=== PATIENT | male | born 1990 | race Caucasian/White ===

== ENCOUNTER 2018-11-02 14:57 | Emergency (ER) | payer OTHER ==
[2018-11-02 15:31] VITALS: BP 169/112; PULSE 98; RESP 18; TEMP 97.8
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
== END 2018-11-02 17:58 | disposition home or self-care (01) ==
LOC: EC 14:57
DX: S16.1XXA Strain of muscle, fascia and tendon at neck level, initial encounter (principal); R03.0 Elevated blood-pressure reading, without diagnosis of hypertension; V53.5XXA Driver of pick-up truck or van injured in collision with car, pick-up truck or van in traffic accident, initial encounter; Y92.69 Other specified industrial and construction area as the place of occurrence of the external cause; Y99.0 Civilian activity done for income or pay
CPT/HCPCS: 70450; 72125; 99284

== ENCOUNTER → 2018-11-10 | Outpatient (CLI) | payer OTHER ==
--- NOTE | 2018-11-10 10:44 | XR ---
EXAMINATION TYPE: XR lumbar spine 2 or 3V DATE OF EXAM: 11/10/2018 CLINICAL HISTORY: pain TECHNIQUE: Three views of the lumbar spine are submitted. COMPARISON: None. FINDINGS: There are 5 lumbar type vertebral bodies identified. The lumbar spine shows satisfactory alignment w ithout evidence of acute fracture or dislocation. Vertebral body heights are within normal limits. Disc spaces are within normal limits. The overlying soft tissue appears unremarkable. IMPRESSION: No acute fracture or dislocation is seen in the lumbar spine. ICD 10 NO FRACTURE, INITIAL EVALUATION
== END | disposition home or self-care (01) ==
LOC: RADXRMAIN 10:14
PROVIDERS: ATTEND Emergency Medicine
DX: S33.5XXA Sprain of ligaments of lumbar spine, initial encounter (principal)
CPT/HCPCS: 72100

== ENCOUNTER 2023-05-11 15:41 | Emergency (ER) | payer OTHER ==
--- NOTE | 2023-05-11 16:08 | ED ---
General Adult HPI - General Source: patient, RN notes reviewed Mode of arrival: ambulatory Limitations: no limitations <Meghan Mendes - Last Filed: 05/11/23 16:05> - General Source: patient, RN notes reviewed, old records reviewed <Arsen Castro - Last Filed: 05/11/23 21:16> - General Chief complaint: Back Pain/Injury Stated complaint: Back pain Time Seen by Provider: 05/11/23 16:05 - History of Present Illness Initial comments: 33 year old male presents to the emergency department for evaluation of low back pain. Patient states that it started yesterday but was progressively worse this morning when he woke up. He reports preforming pulling motions at work. Denies loss of bowel or bladder function, saddle anesthesia, fever. (Meghan Mendes) Patient is a 33-year-old female presents emergency Department complaining of low back pain. Has been present for one day. Noticed tightening of his back while at work yesterday and then he performed of movement which made it worsen. Endorses mid paraspinal muscle tenderness palpation. Has a history of muscle strains in his back. Denies any radiation the pain. Denies any urinary complaints. Denies any chest pain or shortness breath. No loss of consciousness or hitting his head. No trauma. Denies any urinary bowel incontinence or retention. Denies any saddle paresthesias. Denies any lower extremity paralysis. I evaluated the patient when imaging results returned. Originally seen at a quick note.Pain is worse with movement. (Arsen Castro) - Related Data Previous Rx's Medication Instructions Recorded Cyclobenzaprine [Flexeril] 5 mg PO TID PRN 5 Days #15 tablet 05/11/23 Lidocaine 5% Patch [Lidoderm 5% 14 patch TOPICAL DAILY 14 Days #14 05/11/23 Patch] patch Allergies Allergy/AdvReac Type Severity Reaction Status Date / Time No Known Allergies Allergy Verified 05/11/23 16:03 Review of Systems ROS Other: All systems not noted in ROS Statement are negative. <Meghan Mendes - Last Filed: 05/11/23 16:05> ROS Other: All systems not noted in ROS Statement are negative. <Arsen Castro - Last Filed: 05/11/23 21:16> ROS Statement: Those systems with pertinent positive or pertinent negative responses have been documented in the HPI. Review of Systems: CONST: Denies fever EYES: Denies blurry vision ENT: Denies nasal congestion C/V: Denies Chest pain RESP: Denies shortness of breath GI: Denies abdominal pain : Denies dysuria SKIN: Denies rash. MSK: Endorses back pain NEURO: Denies headache (Arsen Castro) Past Medical History Past Medical History: No Reported History History of Any Multi-Drug Resistant Organisms: None Reported Past Surgical History: No Surgical Hx Reported Past Psychological History: No Psychological Hx Reported Smoking Status: Never smoker Past Alcohol Use History: Occasional Past Drug Use History: None Reported <Meghan Mendes - Last Filed: 05/11/23 16:05> General Exam Limitations: no limitations <Meghan Mendes - Last Filed: 05/11/23 16:05> <Arsen Castro - Last Filed: 05/11/23 21:16> - General Exam Comments Initial Comments: Visual Physical Exam Vital signs reviewed General: Well-appearing, nontoxic, no acute distress. Head: Normocephalic, atraumatic Eyes: PERRLA, EOMI ENT: Airway patent Chest: Nonlabored breathing Skin: No visual rash, normal skin tone Neuro: Alert and oriented 3 Musculoskeletal: No gross abnormalities Visual Physical Exam Vital signs reviewed General: Well-appearing, nontoxic, no acute distress. Head: Normocephalic, atraumatic Eyes: PERRLA, EOMI ENT: Airway patent Chest: Nonlabored breathing Skin: No visual rash, normal skin tone Neuro: Alert and oriented 3 Musculoskeletal: No gross abnormalities (Meghan Mendes) General: Appears in no acute distress. HEAD: Normal with no signs of head trauma. EYES: EOMI. ENT: Hearing grossly intact. RESPIRATORY: No respiratory distress. C/V: Regular rate and rhythm. ABD: Abdomen is nondistended. EXT: Bilateral Lumbar paraspinal muscle tenderness to palpation. No midline cervical, thoracic, lumbar's spinal tenderness to palpation. No step-offs or deformities. SKIN: No rashes or lesions observed on exposed skin. NEURO: Alert and oriented. (Arsen Castro) Course Vital Signs 05/11/23 05/11/23 16:00 18:35 Temperature 98 F Pulse Rate 71 72 Respiratory 20 18 Rate Blood Pressure 161/97 154/89 O2 Sat by Pulse 99 97 Oximetry Medical Decision Making <Meghan Mendes - Last Filed: 05/11/23 16:05> <Arsen Castro - Last Filed: 05/11/23 21:16> - Medical Decision Making Quick note preformed by Meghan Mendes PA-C (Meghan Mendes) Was pt. sent in by a medical professional or institution (, BENJAMIN, OPERATIONS SUPPORT SPECIALIST, urgent care, hospital, or senior care...) When possible be specific @ -No Did you speak to anyone other than the patient for history (EMS, parent, family, police, friend...)? What history was obtained from this source @ -No Did you review nursing and triage notes (agree or disagree)? Why? @ -I reviewed and agree with nursing and triage notes Were old charts reviewed (outside hosp., previous admission, EMS record, old EKG, old radiological studies, urgent care reports/EKG's, senior care records)? Report findings @ -No old charts were reviewed Differential Diagnosis (chest pain, altered mental status, abdominal pain women, abdominal pain men, vaginal bleeding, weakness, fever, dyspnea, syncope, headache, dizziness, GI bleed, back pain, seizure, CVA, palpatations, mental health, musculoskeletal)? @ -Differential Musculoskeletal Muscular strain, contusion, ligament sprain, fracture, arthritis, septic arthritis, bursitis, cellulitis, muscle spasm, nerve compression, DVT, arterial occlusion, herpes zoster, electrolyte abnormality, tumor.... This is not meant to be in all inclusive list EKG interpreted by me (3pts min.). @ -None done X-rays interpreted by me (1pt min.). @ -No obvious acute injury and lumbar spine x-ray. CT interpreted by me (1pt min.). @ -None done U/S interpreted by me (1pt. min.). @ -None done What testing was considered but not performed or refused? (CT, X-rays, U/S, labs)? Why? @ -None What meds were considered but not given or refused? Why? @ -None Did you discuss the management of the patient with other professionals (professionals i.e. BENJAMIN Zaragoza, OPERATIONS SUPPORT SPECIALIST, lab, RT, psych nurse, older adult social work specialist, job superintendent, teacher, sheriff's officer, casework specialist)? Give summary @ -No Was smoking cessation discussed for >3mins.? @ -No Was critical care preformed (if so, how long)? @ -No Were there social determinants of health that impacted care today? How? (Homelessness, low income, unemployed, alcoholism, drug addiction, transportation, low edu. Level, literacy, decrease access to med. care, long term, rehab)? @ -No Was there de-escalation of care discussed even if they declined (Discuss DNR or withdrawal of care, Hospice)? DNR status @ -No What co-morbidities impacted this encounter? (DM, HTN, Smoking, COPD, CAD, Cancer, CVA, ARF, Chemo, Hep., AIDS, mental health diagnosis, sleep apnea, morbid obesity)? @ -None Was patient admitted / discharged? Hospital course, mention meds given and route, prescriptions, significant lab abnormalities, going to OR and other pertinent info. @ -Patient presents to the emergency Department complaining of mechanical back pain. It is atraumatic. No concern for cauda equina syndrome. Vital signs are within acceptable limits. Imaging obtained as a quick Bobo and was negative for any obvious traumatic injury. Vital signs within acceptable limits. I did discuss with the patient results of his imaging. He'll be discharged home at this time. Diagnosis is muscle strain. I will provide the patient with a prescription for lidocaine patch, Flexeril. I instructed the patient to follow up with their PCP in the next 1-3 days. I explained that the patient should return to the emergency department if they experience any worsening symptoms. Strict return precautions were discussed with the patient. The patient expressed understanding of these instructions. I answered all questions that the patient had. The patient was discharged home in good condition with their prescriptions and follow up information. Undiagnosed new problem with uncertain prognosis? @ -No Drug Therapy requiring intensive monitoring for toxicity (Heparin, Nitro, Insulin, Cardizem)? @ -No Were any procedures done? @ -No Diagnosis/symptom? @ -Mechanical back pain, muscle strain Acute, or Chronic, or Acute on Chronic? @ -Acute Uncomplicated (without systemic symptoms) or Complicated (systemic symptoms)? @ -Uncomplicated Side effects of treatment? @ -No Exacerbation, Progression, or Severe Exacerbation? @ -No Poses a threat to life or bodily function? How? (Chest pain, [place], [place], pneumonia, PE, COPD, DKA, ARF, appy, cholecystitis, CVA, Diverticulitis, Homicidal, Suicidal, threat to staff... and all critical care pts) @ -No (Arsen Castro) Disposition <Meghan Mendes - Last Filed: 05/11/23 16:05> Is patient prescribed a controlled substance at d/c from ED?: No Time of Disposition: 18:18 <Arsen Castro - Last Filed: 05/11/23 21:16> Clinical Impression: Muscle strain, Mechanical back pain Disposition: HOME SELF-CARE Condition: Good Instructions (If sedation given, give patient instructions): Acute Low Back Pain (ED) Prescriptions: Cyclobenzaprine [Flexeril] 5 mg PO TID PRN 5 Days #15 tablet PRN Reason: Pain Lidocaine 5% Patch [Lidoderm 5% Patch] 14 patch TOPICAL DAILY 14 Days #14 patch Referrals: None,Stated [Primary Care Provider] - 1-2 days
[2023-05-11 16:20] VITALS: TEMP 98
--- NOTE | 2023-05-11 16:54 | XR ---
EXAMINATION TYPE: XR lumbar spine 2 or 3V DATE OF EXAM: 05/11/2023 COMPARISON: 11/10/2018 HISTORY: Pain TECHNIQUE: Three-view lumbar spine FINDINGS: There are 5 lumbar-type vertebral bodies. Pedicles are intact. Disc heights are preserved. Vertebral body heights are preserved. IMPRESSION: 1. No acute osseous abnormality through the lumbar spine. Follow-up MRI can be performed as clinical ly indicated.
[2023-05-11] MEDS ORDERED: LIDOCAINE 4% PATCH TOPICAL STA (18:24)
[2023-05-11 18:43] VITALS: BP 154/89; PULSE 72; RESP 18
== END 2023-05-11 18:36 | disposition home or self-care (01) ==
LOC: EC 15:41
DX: S39.012A Strain of muscle, fascia and tendon of lower back, initial encounter (principal); X58.XXXA Exposure to other specified factors, initial encounter
CPT/HCPCS: 72100; 99283